=== PATIENT | female | born 1990 | race Two or more races ===

== ENCOUNTER 2023-09-29 13:59 | Outpatient (AMB) | payer OTHER, SELFPAY ==
--- NOTE | 2023-09-29 14:01 | A.OFFVIS_ITS ---
Intake Visit Reasons: Thrombosed exernal hemorrhoids Intake Note: This patient presents for an assessment for thrombosed external hemorrhoids. Patient c/o; reports pain, reports unable to sit. Global Safety Officer Required: No Accompanied by: Other Relationship Allergies No Known Allergies Allergy (Verified 09/29/23 14:09) Medication List - Last Reconciled 09/29/23 by Santosh Lou MD polyethylene glycol 3350 (Miralax) 17 grams PO DAILY HPI HPI Thrombosed exernal hemorrhoids: Details: 32-year-old female referred for painful hemorrhoids. She says that she has had this problem for about a year now. Unfortunately, she did not have a primary care physician and [place] so she had been bouncing around the emergency room was being given topical cream. She says that this has not really helped and she says that her pain has been worsening the past few days. She was able to see Dr. Colvin yesterday and was referred to me. She sees blood periodically bowel movements as well. [facility] Medical History (Updated 09/29/23 @ 14:18 by Santosh Lou MD) External hemorrhoids with complication Surgical History No pertinent past surgical history Social History Alcohol intake: never Patient Tobacco Use Status: Never used Tobacco Review of Systems Const Denies chills and Denies fever(s) Card Denies chest pain, Denies dyspnea and Denies dyspnea on exertion Resp Denies cough, Denies dyspnea and Denies dyspnea on exertion GI Denies hematochezia and Denies change in bowel habits Denies hematuria Musc Denies back pain and Denies limited range of motion Neuro Denies focal weakness and Denies convulsions Psych Denies depression and Denies mood swings Physical Exam Const General: comfortable and no acute distress Orientation/consciousness: patient oriented x3 Neck Neck: Yes no lymphadenopathy Resp Auscultation: clear to auscultation bilaterally Cardio Rhythm: regular rhythm GI Other: Rectal exam shows large tender very swollen hemorrhoid about 1.5 cm on the right side, external, tender Palpation (GI): Soft to palpation, nontender and no guarding Neuro General: patient oriented x3 Assessment & Plan Assessment & Plan (1) External hemorrhoids with complication: Code(s): K64.4 - Residual hemorrhoidal skin tags Category: Medical Plan: She has what appears to be chronically swollen and partially thrombosed large external hemorrhoid. She has had pain for several months now and this had been steadily worsening. We will schedule her for exam under anesthesia and hemorrhoidectomy. I explaine d the technique of this procedure. I reviewed the risks including but not limited to bleeding, infections, as well as benefits and alternatives. She understands and wants to proceed. We will put her on the add on schedule for tomorrow. Coding Level of Care Code New Pt Level 3 (71885) Diagnoses External hemorrhoids with complication K64.4
== END 2023-09-29 14:29 | disposition home or self-care (01) ==
PROVIDERS: PCP Internal Medicine; Referring Provider Internal Medicine; Visit Provider Surgery
DX: K64.4 Residual hemorrhoidal skin tags (principal)
CPT/HCPCS: 99204

== ENCOUNTER → 2023-09-29 13:59 | Outpatient (BNVA) | payer OTHER, SELFPAY | PROVIDERS: PCP Internal Medicine; Referring Provider Internal Medicine; Visit Provider Surgery ==

== ENCOUNTER 2023-10-01 10:31 | Day surgery (SDC) | payer OTHER, SELFPAY ==
[2023-10-01] VITALS (10 sets, daily range): BP systolic 104–119; BP diastolic 72–86; PULSE 65–82; RESP 12–17; TEMP 36.4–36.8; O2SAT 96–100; BMI 33.5
[2023-10-01 11:05] LABS: UPreg QC Valid YES; Urine Pregnancy NEGATIVE (NEGATIVE)
--- NOTE | 2023-10-01 11:20 | PC.NURSE ---
Patient in SSS. Wearing bracelet x1 and earring x1. Bracelet removed. Earring unable to be removed. Dr. Murry and Dr. Lou made aware. Okay to proceed. Waiver signed.
[2023-10-01] MEDS: Lactated Ringers 1,000 ML 80 ML IVCONT (11:23)
--- NOTE | 2023-10-01 11:26 | P.CONAN_ITS ---
[facility] Active Problems Active Problems: All Active Problems External hemorrhoids with complication (Acute) Past Medical History Medical History (Updated 09/29/23 @ 14:18 by Santosh Lou MD) External hemorrhoids with complication Family History Family history of problems with anesthesia: No Surgical History Surgical History (Updated 10/01/23 @ 10:57 by Natasha Mares) History of gastric surgery History of Problems with Anesthesia: No Social History Social History Alcohol intake: never Patient Tobacco Use Status: Never used Tobacco Use of substances other than those prescribed or required for medical reasons: No Are you DNR?: No Advance Directives: No Advance Directives Information Provided: Yes Meds Allergies Allergy/AdvReac Type Severity Reaction Status Date / Time No Known Allergies Allergy Verified 10/01/23 10:57 Active Medications: Current Medications Lactated Ringer's (Lr) 1,000 mls @ 80 mls/hr IVCONT .[id number] MERCEDES Last Admin: 10/01/23 11:23 Dose: 80 mls/hr Home Medications ?Medication ?Instructions ?Recorded ?Confirmed ?Last Taken ?Type polyethylene glycol 3350 17 17 g PO DAILY 09/29/23 10/01/23 Unknown History gram/dose oral powder (Miralax) Exam Height,Weight and Vital Signs: Height 5 ft 3 in Weight 85.729 kg Last Vital Signs Temp 98.2 F 10/01/23 10:59 Pulse 75 10/01/23 10:59 Resp 16 10/01/23 10:59 BP 112/76 10/01/23 10:59 Pulse Ox 99 10/01/23 10:59 O2 Del Method Room Air 10/01/23 10:59 Pertinent Lab Results Pertinent Lab Results: Laboratory Tests 10/01/23 10:43 Urine Test NEGATIVE Airway Mallampati Class: II TM Dist: >3cm Neck ROM: Full Assessment and Plan Assessment Anesthesia Assessment: Anesthesia Plan Discussed and Chart Reviewed Final Anesthetic Review Family History of Problems with Anesthesia: No History of Problems with Anesthesia: No NPO: Yes ASA Class: II Final Preanesthetic Review: No Changes in Pt Med Stat, Meds/Allgs Chart Reviewed, Consent Obtained/Reviewed and Anes Risks/Benef Reviewed Patient Risk: Low Procedure Risk: Low Anesthetic Plan Anesthetic Plan: GA Disposition: Standard PACU
--- NOTE | 2023-10-01 11:32 | MHC.SHP ---
Pre-Procedural Eval Section A - 24 Hr Update-Section A only Date of Service: 10/01/23 The patient is an INPATIENT: No Changes since office visit: No Cold of Flu in the past 2 weeks, No New Medical Problems, No Changes in Medication and No Patient answered all questions The patient has been examined within 24 hours of the surgical procedure. The History & Physical has been completed within 30 days and I have reviewed it.: Yes Section B - Complete if H&P > 30 days Chief Complaint: Residual hemorrhoidal skin tags Allergies: Allergies Allergy/AdvReac Type Severity Reaction Status Date / Time No Known Allergies Allergy Verified 10/01/23 10:57 Plan I have reviewed the history and physical and performed a pertinent physical examination on my patient. No changes have occurred unless specified. Time Spent With Patient Time: Total time managing care of this patient today ____ minutes.
--- NOTE | 2023-10-01 12:00 | PC.NURSE ---
Patient took ibuprofen yesterday. Dr. Lou made aware. Okay to proceed.
--- NOTE | 2023-10-01 13:11 | W.PM.OPN ---
Operative Note Operative Note Date of Service: 10/01/23 Narrative: Preop diagnosis: External hemorrhoids with severe pain Postop diagnosis: 1.External hemorrhoids on the posterior aspect, significant edema and inflammation 2. Posterior midline fissure Procedure: Exam under anesthesia hemorrhoidectomy x1 and lateral internal sphincterotomy Surgeon: Santosh Lou MD The patient is a 32-year-old female seen in the office 2 days ago because of severe anal pain. She had this very swollen hemorrhoid and because of severe pain she wanted to do hemorrhoidectomy as soon as possible. She understood the technique of the procedure as well as the risks, benefits, and alternatives. She was brought to the operating room. She was placed in prone sarah-knife position under general anesthesia via endotracheal tube. The buttocks were retracted with wide tape laterally. The perianal area was prepped and draped in the usual sterile fashion. A surgical time-out was done. The patient received Cefotan 2 g IV preoperatively Examination of the anal orifice revealed a swollen external hemorrhoids on the right posterior area, about 1.5 cm and appeared very inflamed. I inserted the Lewis Yap retractor. I examined the anal canal circumferentially. There was also note of posterior midline fissure in the dentate line distally which likely explains her severe pain as well. I applied a Box grasper at the external hemorrhoidal column. I excised this using electrocautery. I cauterized the base. I then proceeded to a right lateral internal sphincterotomy because of the presence of the anal fissure. I palpated for the intersphincteric groove. I made a short incision overlying this with a blade 15. I gently isolated and dissected the internal sphincter fibers. I divided the internal sphincter fibers on the right side with electrocautery. I then closed the incision with full-thickness chromic 3-0 running stitch There was note of some small chronically sclerosed external hemorrhoids on the anterior anal verge which I cauterized down to a grayish eschar. I infiltrated the perianal area with Marcaine 0.5% for postop analgesia. I observed for hemostasis. Once hemostasis was confirmed, the procedure was completed The patient tolerated procedure well. There were no immediate complications. Initial and final counts of sponges and instruments were correct. Estimated blood loss about 20 cc The patient was extubated without difficulty and transferred to the recovery room with stable vital signs.
[2023-10-01] MEDS: fentaNYL citrate/PF 100 MCG/2 ML VIAL 50 MCG IVPUSH (13:38)
== END 2023-10-01 15:00 | disposition home or self-care (01) ==
PROVIDERS: Anesthesiology; PCP Internal Medicine; Visit Provider Surgery
PROC: (CPT 46080; principal; 2023-10-01 12:30)
DX: K60.2 Anal fissure, unspecified (principal); K64.4 Residual hemorrhoidal skin tags
CPT/HCPCS: 46080; 81025; 88304; J1100; J2250; J2405; J2704; J2795; J3010

== ENCOUNTER → 2023-10-01 10:31 | Outpatient (BNV) | payer OTHER, SELFPAY | PROVIDERS: PCP Internal Medicine; Visit Provider Surgery | DX: K64.4 Residual hemorrhoidal skin tags (principal) | CPT/HCPCS: 46999 ==

== ENCOUNTER 2023-10-18 15:28 | Outpatient (AMB) | payer OTHER, SELFPAY ==
--- NOTE | 2023-10-18 15:33 | MHC.OFFVIS ---
Intake Visit Reasons: S/P hemorrhoidectomy Intake Note: This patient presents for a post-op assessment status post Exam under anesthesia hemorrhoidectomy x1 and lateral internal sphincterotomy. Patient c/o; reports no complaints pertaining to surgery. Auto Bench Mechanic Required: No Accompanied by: Self / Same As Patient Allergies No Known Allergies Allergy (Verified 10/18/23 15:54) HPI HPI S/P hemorrhoidectomy: Details: She underwent exam under anesthesia, sphincterotomy, and hemorrhoidectomy for severe anal pain last 10/01/2023. She tolerated procedure well and currently feels much better. She says that she does not have any pain anymore and has good bowel movements. She is very happy with the outcome. [facility] Medical History External hemorrhoids with complication Surgical History Hx of surgical procedure (~10/01/23) History of gastric surgery Social History Alcohol intake: never Patient Tobacco Use Status: Never used Tobacco Review of Systems Const Denies chills and Denies fever(s) GI Denies hematochezia Physical Exam Const General: comfortable and no acute distress GI Other: Rectal exam shows the incisions to be well healed, not infected, no induration, no discharge Assessment & Plan Assessment & Plan (1) External hemorrhoids with complication: Code(s): K64.4 - Residual hemorrhoidal skin tags Category: Medical Plan: Status post exam under anesthesia. She was noted to have this large external hemorrhoid along with a posterior midline fissure and she underwent lateral sphincterotomy and hemorrhoidectomy. Her path report shows appears to be an inflamed fibroepithelial polyp. Her surgical sites are both well healed. There has no evidence of any infection She is doing very well overall. She can therefore follow up with me on a p.r.n. basis. Coding Level of Care Code Global (22734) Diagnoses External hemorrhoids with complication K64.4
== END 2023-10-18 16:06 | disposition home or self-care (01) ==
PROVIDERS: PCP Internal Medicine; Visit Provider Surgery
DX: K64.4 Residual hemorrhoidal skin tags (principal)
CPT/HCPCS: 99024

== ENCOUNTER → 2023-10-18 15:28 | Outpatient (BNVA) | payer OTHER, SELFPAY | PROVIDERS: PCP Internal Medicine; Visit Provider Surgery ==

== ENCOUNTER 2024-09-13 17:05 | Emergency (ER) | payer OTHER, SELFPAY ==
[2024-09-13 17:27] VITALS: BP 117/79; PULSE 90; RESP 16; TEMP 36.3; O2SAT 100; BMI 30.4
--- NOTE | 2024-09-13 17:27 | ED.GENADULT ---
HPI - General Adult General Chief complaint: Urogenital-Female Stated complaint: Ucult testing Time Seen by Provider: 09/13/24 17:29 Source: patient Mode of arrival: ambulatory Limitations: no limitations History of Present Illness ED Provider: PIETRO KIRK PA-C HPI narrative: 33-year-old female presents to the ED today for evaluation of dysuria. She was recently evaluated by her primary care provider and started on Flagyl and ciprofloxacin. She just recently began taking these medications and reports burning with urination that only occurs after she takes this medication. Denies fever, chills, hematuria. Denies nausea or vomiting. She denies any symptoms at present. She told her primary care provider who gave her an order for outpatient UA. She then presented to the ED for this. No complaints at present. Related Data Home Medications ?Medication ?Instructions ?Recorded ?Confirmed polyethylene glycol 3350 17 17 g PO DAILY 09/29/23 10/01/23 gram/dose oral powder (Miralax) Previous Rx's ?Medication ?Instructions ?Recorded ibuprofen 600 mg tablet 600 mg PO Q6H PRN pain #5 tabs 09/29/23 tramadol 50 mg tablet 50 mg PO Q6H PRN pain #5 tabs 09/29/23 docusate sodium 100 mg capsule 100 mg PO BID #60 caps 10/01/23 (Colace) ibuprofen 600 mg tablet 600 mg PO Q6H PRN pain #30 tabs 10/01/23 oxycodone-acetaminophen 5 mg-325 1 tab PO Q4-6H PRN pain #25 tabs 10/01/23 mg tablet (Percocet) Allergies Allergy/AdvReac Type Severity Reaction Status Date / Time No Known Allergies Allergy Verified 09/13/24 17:29 Review of Systems Review of Systems: Yes all other systems are reviewed and are negative PMFSH Past Medical History Attestation statement: The following information was validated with the patient. Source: old records reviewed and nursing notes reviewed Medical History External hemorrhoids with complication Surgical History Hx of surgical procedure (~10/01/23) History of gastric surgery Social History Social History Alcohol intake: never Patient Tobacco Use Status: Never used Tobacco Advance Directives: No Advance Directives Information Provided: No Do you have a plan to hurt others: No Plan Physical Exam ED Vital Signs: Vital Signs - 24 hr 09/13/24 17:27 Temperature 97.4 F Pulse Rate 90 Respiratory Rate 16 Blood Pressure 117/79 Pulse Oximetry 100 Oxygen Delivery Method Room Air BMI result Body Mass Index 30.4 vital signs stable, afebrile General: Well appearing, in no acute distress. Skin: Warm, dry, intact. No rashes or lesions. Head: Normocephalic, atraumatic. EENT: Hearing is intact b/l. Conjunctiva clear. EOM intact Cardiac: Chest wall symmetric. RRR Lungs: Normal respiratory effort without accessory muscle use Neuro: AOx3. Normal speech. Ambulating with steady gait. Psych: Appropriate mood and affect. Responds appropriately to questions. Course Course Course Narrative: UA without infection. Patient left the emergency department before myself or any of the other clinicians could review or explain physical exam findings, test results, need or lack there of for additional testing, treatment options, or a treatment plan. Medical Decision Making Medical Decision Making [facility] Narrative: 33-year-old female presents to the ED today for evaluation of dysuria. vital signs stable. she is nontoxic appearing and in NAD. exam benign. Differential diagnosis includes UTI, renal colic, nephrolithiasis Plan for UA and disposition. Differential Diagnosis Differential Diagnoses: The differential diagnosis associated with the presentation includes as above. Admission/Observation not indicated. Lab Data [facility] Lab Attestation statement: I reviewed the patient's lab results. as above. Labs: Lab Results 09/13/24 09/13/24 Range/Units 17:36 17:37 Urine Color Yellow Urine Appearance Clear Urine pH 6.0 (5.0-9.0) Ur Specific [place] 1.025 (1.005-1.025) Urine Protein Negative (Neg-Trace) mg/dL Urine Glucose (UA) Negative (Negative) mg/dL Urine Ketones Negative (Negative) mg/dL Urine Blood Negative (Negative) Urine Nitrite Negative (Negative) Ur Leukocyte Esterase Trace H (Negative) Urine RBC 0-2 (0-2) /HPF Urine WBC 0-5 (0-5) /HPF Ur Squamous Epith Cells 3-5 (0-2) /HPF Urine Bacteria None Seen (None Seen) Hyaline Casts 0-2 (0-2) /LPF Urine Test NEGATIVE (NEGATIVE) Social Determinants Patient?s care significantly limited by Social Determinants of Health including: Other Social Determinant of Health Critical Care Time Critical Care Time Critical Care Time: No Discharge Plan Discharge Clinical Impression: Dysuria Patient Disposition: Left W/O Completing Treatment Prescriptions: No Action docusate sodium [Colace] 100 mg capsule 100 mg PO BID Qty: 60 2RF oxycodone-acetaminophen [Percocet] 5-325 mg tablet 1 tab PO Q4-6H PRN (Reason: pain) Qty: 25 0RF Rx Instructions: Partial Fill upon patient request. ibuprofen 600 mg tablet 600 mg PO Q6H PRN (Reason: pain) Qty: 30 0RF polyethylene glycol 3350 [Miralax] 17 gram/dose powder 17 g PO DAILY tramadol 50 mg tablet 50 mg PO Q6H PRN (Reason: pain) Qty: 5 0RF ibuprofen 600 mg tablet 600 mg PO Q6H PRN (Reason: pain) Qty: 5 0RF Discharge Date/Time: 09/13/24 19:27
[2024-09-13 17:46] LABS: Urine Pregnancy NEGATIVE (NEGATIVE)
[2024-09-13 17:46] LABS: Appearance Urine Clear; Color Urine Yellow; Glucose Urine UA Negative (Negative); Leukocyte Esterase Urine Trace (Negative); Nitrite Urine Negative (Negative); Specific Gravity - Urine 1.025 (1.005-1.025); UMIC TRIGGER UACC YES; Urine Blood Negative (Negative); Urine Ketones Negative (Negative); Urine Protein Negative (Neg-Trace)
[2024-09-13 17:47] LABS: UPreg QC Valid YES
--- NOTE | 2024-09-13 18:47 | PC.NURSE ---
Patient's UA only partially resulted, called lab spoke to ronel, will result shortly.
[2024-09-13 18:48] LABS: Bacteria Urine None Seen (None Seen); Hyaline Casts Urine 0-2 /LPF (0-2); RBC Urine 0-2 /HPF (0-2); WBC Urine 0-5 /HPF (0-5)
--- NOTE | 2024-09-13 19:09 | PC.NURSE ---
Pt left before UA results were back. Provider aware.
== END 2024-09-13 19:27 | disposition left against medical advice (07) ==
LOC: HO.ED 19:24
PROVIDERS: Physician Assistant Medical; Emergency Provider Emergency Medicine; PCP Internal Medicine
DX: R30.0 Dysuria (principal)
CPT/HCPCS: 81001; 81025; 99282

== ENCOUNTER 2024-09-25 13:03 | Outpatient (REF) | payer OTHER, SELFPAY ==
[2024-09-25 13:14] LABS: MANUAL DIFF FLAG NO
[2024-09-25 13:48] LABS: Basophils Absolute Auto 0.1 X10*3/uL (0.0-0.2); Basophils Percent Auto 0.5 % (0-2); Eosinophils Absolute Auto 0.1 X10*3/uL (0.0-0.4); Eosinophils Percent Auto 1.5 % (0-4); Hematocrit 34.7 % (37.0-47.0); Hemoglobin 11.2 g/dl (12.0-16.0); Imm Gran Abs Auto 0.04 X10*3/uL (0.00-0.03); Imm Gran Pct Auto 0.4 % (0.0-0.4); Lymphocytes Absolute Auto 3.4 X10*3/uL (1.2-4.9); Mean Corpuscular HGB Conc 32.3 g/dl (31.0-35.0); Mean Corpuscular Hemoglobin 24.1 pg (27.0-33.0); Mean Corpuscular Volume 74.8 fL (80.0-98.0); Mean Platelet Volume 10.6 fL (9.4-12.3); Monocytes Absolute Auto 0.7 X10*3/uL (0.1-1.2); Monocytes Percent Auto 7.2 % (2-11); Neutrophils Percent Auto 53.4 % (45-73); Platelet Count 367 X10*3/uL (160-400); Red Blood Count 4.64 X10*6/uL (4.20-5.50); Red Cell Distribution Width 15.1 % (11.0-16.0); White Blood Count 9.3 X10*3/uL (4.8-10.8)
[2024-09-25 14:36] LABS: Ferritin 9 ng/mL (10-122)
--- OUTSIDE RECORDS SUMMARY | 2024-09-25 14:47 | XMS_ITS | Clinical Summary ---
Author Organization [facility] it Address [id number] [place] [id number] Care Team Providers Care Playground Aide Name Role Phone Swetha Caruso Primary Care Provider [phone] Social History Tobacco Use Types Packs/Day Years Used Date Smoking Tobacco: Never Alcohol Use Standard Drinks/Week Comments Never 0 (1 standard drink = 0.6 oz pur e alcohol) Comments Unknown Sex and Gender Information Value Date Recorded Sex Assigned at Not on file Legal Sex Female 11:02 AM EDT Gender Identity Not on file Sexual Orientation Not on file Obstetrics History Last Filed Vital Signs Vital Sign Reading Time Taken Comments Blood Pressure 130/92 07/02/2023 10:02 AM EDT Pulse 80 07/02/2023 10:02 AM EDT Temperature - - Respiratory Rate - - Oxygen Saturation - - Inhaled Oxygen Concentration - - Weight 84.8 kg (187 lb) 07/02/2023 10:02 AM EDT Height 160 cm (5' 3 ) 07/02/2023 10:02 AM EDT Body Mass Index 33.13 07/02/2023 10:02 AM EDT Plan of Treatment Health Maintenance Due Date Last Done Comments DTaP,Tdap,and Td Vaccines (1 - Tdap) 2009 Hepatitis B Vaccines (1 of 3 - 19+ 3-dose series) 2009 Cervical Cancer Screening: P ap Smear 12/07/2011 Depression Screening 11/09/2023 HIV Screening 11/09/2023 Hepatitis C Screening 11/09/2023 Social Influencers of Health Screening 11/09/2023 COVID-19 Vaccine ( - 2023-2 5 season) 2023 Influenza Vaccine (Season Ended) 2024 HIB Vaccines Aged Out No longer eligi ble based on patient's age to complete this topic HPV Vaccines Aged Out No longer eligi ble based on patient's age to complete this topic Hepatitis A Vaccines Aged Out No long er eligible based on patient's age to complete this topic IPV Vaccines Aged Out No longer eligi ble based on patient's age to complete this topic MMR Vaccines Aged Out No longer eligi ble based on patient's age to complete this topic Meningococcal ACWY Vaccine Aged Out N o longer eligible based on patient's age to complete this topic Meningococcal B Vaccine Aged Out No l onger eligible based on patient's age to complete this topic Pneumococcal Vaccine: Pediat rics (0 to 5 Years) and At-Risk Patients (6 to 64 Years) Aged Out No longer eligible b ased on patient's age to complete this topic RSV Immunization Patients [place] 20 months Aged Out No longer eligible b ased on patient's age to complete this topic Varicella Vaccines Aged Out No longer eligible based on patient's age to complete this topic Care Teams Playground Aide Relationship Specialty Start Date End Date Swetha Caruso PA [address] [place] [address] PCP - General 07/01/23
[2024-09-25 14:51] LABS: Folate 8.1 ng/mL (> or = 4.0); Vitamin B12 330 pg/mL (200-900)
== END 2024-09-25 13:04 | disposition home or self-care (01) ==
LOC: HO.LAB 13:03
PROVIDERS: PCP Internal Medicine; Visit Provider Internal Medicine
DX: D64.9 Anemia, unspecified (principal); F43.11 Post-traumatic stress disorder, acute; T14.8XXA Other injury of unspecified body region, initial encounter
CPT/HCPCS: 36415; 82607; 82728; 82746; 85025